=== PATIENT | female | born 1945 | race Caucasian/White ===

== ENCOUNTER 2023-03-25 10:11 | Outpatient (CLI) | payer MEDICARE | END 2023-03-25 10:12 | disposition home or self-care (01) | LOC: CSHMAMMO 10:11 | PROVIDERS: ATTEND Internal Medicine | DX: Z12.31 Encounter for screening mammogram for malignant neoplasm of breast (principal); Z85.42 Personal history of malignant neoplasm of other parts of uterus | CPT/HCPCS: 77063; 77067 ==

== ENCOUNTER 2023-07-28 13:52 | Outpatient (CLI) | payer MEDICARE ==
[~2023-07-28 13:52] MED LIST: Magnevist 469MG/ML 20 ML VIAL ONE
== END 2023-07-28 13:53 | disposition home or self-care (01) ==
LOC: CSHMRI 13:52
PROVIDERS: ATTEND Psychiatry & Neurology Neurology
DX: R41.3 Other amnesia (principal); I67.89 Other cerebrovascular disease; R94.02 Abnormal brain scan
CPT/HCPCS: 70553; 82565; A9579

== ENCOUNTER 2024-06-24 09:19 | Outpatient (CLI) | payer MEDICARE, OTHER | END 2024-06-24 09:20 | disposition home or self-care (01) | LOC: CSHMAMMO 09:19 | PROVIDERS: ATTEND Internal Medicine | DX: Z12.31 Encounter for screening mammogram for malignant neoplasm of breast (principal); Z85.42 Personal history of malignant neoplasm of other parts of uterus | CPT/HCPCS: 77063; 77067 ==